=== PATIENT | female | born 1940 ===

== ENCOUNTER 2018-01-02 07:31 | Day surgery (SDC) | payer MEDICARE ==
[2017-12-24 14:33] VITALS: BMI 29.7
[2018-01-02] MEDS ORDERED: Propofol 10 mg/ml Inj (20 ML) ONE (08:27)
[2018-01-02] MEDS ORDERED: Lactated Ringer's 1,000 ML IV SCH (08:45)
[2018-01-02 10:10] VITALS: RESP 14
[2018-01-02 10:53] VITALS: BP 134/74; PULSE 56; TEMP 97.5; O2SAT 100
== END 2018-01-02 12:38 | disposition home or self-care (01) ==
LOC: ENDO 07:31
PROVIDERS: ATTEND Specialist
DX: D12.0 Benign neoplasm of cecum (principal); D12.3 Benign neoplasm of transverse colon; K57.30 Diverticulosis of large intestine without perforation or abscess without bleeding; K21.0 Gastro-esophageal reflux disease with esophagitis; K29.50 Unspecified chronic gastritis without bleeding; K44.9 Diaphragmatic hernia without obstruction or gangrene; K31.89 Other diseases of stomach and duodenum; K64.8 Other hemorrhoids
CPT/HCPCS: 43239; 45380; 45385; 88305; 88312; 88342; J2001; J2704; J3010; J7040; J7120